=== PATIENT | male | born 1990 | race Caucasian/White ===

== ENCOUNTER 2018-02-24 12:14 | Outpatient (RCR) | payer BC ==
[~2018-02-24 12:14] MED LIST: AZIT250T PO; DEXT20TA8 PO
[2018-02-24 14:43] LABS: SEMEN VOLUME 2.5 ML (1.5-5.0)
== END 2018-03-20 | disposition home or self-care (01) ==
LOC: LAB 12:14
DX: N46.01 Organic azoospermia (principal)
CPT/HCPCS: 89320

== ENCOUNTER 2018-04-10 15:17 | Outpatient (RCR) | payer BC | END 2018-04-19 | disposition home or self-care (01) | LOC: LAB 15:17 | DX: N46.01 Organic azoospermia (principal) | CPT/HCPCS: 89320 ==